=== PATIENT | male | born 1995 | race African-American/Black ===

== ENCOUNTER → 2021-01-13 | Emergency (ER) | payer OTHER ==
[~2021-01-13] VITALS: Ht 182.9 cm; Wt 79.4 kg
[~2021-01-13] MED LIST: NAPROSYN500 MG PO; NORCO5 PO; PENICILLIN V P500 MG PO
[2021-01-13 05:33] VITALS: BP 134/90
== END ==
LOC: ER 05:28
DX: K02.9 Dental caries, unspecified (principal); K05.10 Chronic gingivitis, plaque induced

== ENCOUNTER 2021-04-10 07:51 | Emergency (ER) | payer OTHER ==
[~2021-04-10] VITALS: Ht 182.9 cm; Wt 72.6 kg
[2021-04-10 09:00] VITALS: BP 118/72
[2021-04-10] MEDS ORDERED: NAPROSYN500 MG PO (09:14)
== END 2021-04-10 09:27 | disposition home or self-care (01) ==
LOC: ER 07:51
DX: S89.92XA Unspecified injury of left lower leg, initial encounter (principal); Z79.899 Other long term (current) drug therapy; Z79.2 Long term (current) use of antibiotics; X50.1XXA Overexertion from prolonged static or awkward postures, initial encounter; Y93.89 Activity, other specified; Y92.89 Other specified places as the place of occurrence of the external cause; Y99.8 Other external cause status